=== PATIENT | female | born 1950 | race American Indian/Alaskan Native ===

== ENCOUNTER 2017-06-20 14:52 | Observation (INO) | payer MEDICARE | END 2017-06-20 21:22 | disposition home or self-care (01) | LOC: C.ER 14:52 → C.9OBSV 15:30 | PROVIDERS: ADMIT Emergency Medicine | CPT/HCPCS: 70450; 71010; 71275; 80048; 84436; 84480; 84484; 85025; 85378; Q9967 ==

== ENCOUNTER 2018-01-09 06:20 | Day surgery (SDC) | payer MEDICARE ==
[2018-01-09 07:18] VITALS: BMI 33.0
--- NOTE | 2018-01-09 08:28 | CP.SDSHP ---
Same Day Surgery H & P - History Proposed Procedure: colonoscopy Pre-Op Diagnosis: rectal bleeding. h/o colon polyps (>10 years ago) - Previous Medical/Surgical History Cardiac: Hypertension Endocrine/Metabolic: Obesity Misc: Other (RA, SLE, colon polyps) Previous Surgical History: appendix. T and A - Allergies Allergies: Allergies aspirin Adverse Reaction (Mild, Verified 01/09/18 07:16) NAUSEA - Physical Exam General Appearance: Morbidly obese Vital Signs: Vital Signs 01/09/18 07:27 Temperature 98.7 F Pulse Rate 68 Respiratory 19 Rate Blood Pressure 149/64 O2 Sat by Pulse 99 Oximetry Mental Status: Alert & Oriented x3 Neuro: WNL Heart: WNL Lungs: WNL GI: WNL - Impression Impression: rectal bleeding. h/o colon polyps (>10 years) Pt. Evaluated Today:Candidate for Anesthesia & Procedure: Yes - Date & Time Date: 01/09/18 Time: 08:28 Short Stay Discharge - Short Stay Discharge Admitting Diagnosis/Reason for Visit: GASTROINTESTINAL HEMORRHAGE,HISTORY OF COLONIC PAWEL Disposition: HOME/ ROUTINE
[2018-01-09] MEDS ORDERED: Propofol 10 mg/ml Inj (20 ML) ONE ×2 (08:42→08:53)
[2018-01-09] MEDS ORDERED: Lactated Ringer's 1,000 ML IV ONE (08:45)
[2018-01-09 09:22] VITALS: O2SAT 100
[2018-01-09 10:00] VITALS: PULSE 61
[2018-01-09 10:09] VITALS: BP 128/65; RESP 14; TEMP 98.2
== END 2018-01-09 10:05 | disposition home or self-care (01) ==
LOC: C.ENDO 06:20
PROVIDERS: ATTEND Internal Medicine Gastroenterology
DX: Z12.11 Encounter for screening for malignant neoplasm of colon (principal); D12.4 Benign neoplasm of descending colon; K57.30 Diverticulosis of large intestine without perforation or abscess without bleeding; K64.8 Other hemorrhoids; Z86.010 Personal history of colon polyps
CPT/HCPCS: 45380; 88305; J2704; J7120

== ENCOUNTER 2018-11-20 05:59 | Day surgery (SDC) | payer MEDICARE ==
[2018-11-20 06:48] VITALS: O2SAT 100
--- NOTE | 2018-11-20 07:55 | CP.SDSHP ---
Same Day Surgery H & P - History Proposed Procedure: colonoscopy Pre-Op Diagnosis: LGI bleeding - Previous Medical/Surgical History Cardiac: Hypertension Pulmonary: Emphysema/COPD, Other (EMIR) Endocrine/Metabolic: Obesity Misc: Other (RA, SLE, Diverticulosis, colon polyps) Previous Surgical History: appendix - Allergies Allergies: Allergies aspirin Adverse Reaction (Mild, Verified 01/09/18 07:16) NAUSEA - Physical Exam Vital Signs: Vital Signs 11/20/18 06:44 Temperature 98.6 F Pulse Rate 77 Respiratory 19 Rate Blood Pressure 151/68 H O2 Sat by Pulse 100 Oximetry Mental Status: Alert & Oriented x3 Neuro: WNL Heart: WNL Lungs: WNL GI: WNL - Impression Impression: LGI bleeding. Diverticulosis Pt. Evaluated Today:Candidate for Anesthesia & Procedure: Yes - Date & Time Date: 11/20/18 Time: 07:55 Short Stay Discharge - Short Stay Discharge Admitting Diagnosis/Reason for Visit: H/O COLON POLYP Disposition: HOME/ ROUTINE Referrals: Harley Arambula MD [Primary Care Provider] -
[2018-11-20] MEDS ORDERED: Propofol 10 mg/ml Inj (20 ML) ONE ×2 (08:02→08:14)
[2018-11-20] MEDS ORDERED: Midazolam 2 MG/2 ML VIAL ONE (08:02)
[2018-11-20 08:25] VITALS: TEMP 98
[2018-11-20 09:27] VITALS: BP 128/58; PULSE 71; RESP 18
== END 2018-11-20 09:25 | disposition home or self-care (01) ==
LOC: C.ENDO 05:59
PROVIDERS: ATTEND Internal Medicine Gastroenterology
DX: R10.32 Left lower quadrant pain (principal); K92.1 Melena; K57.30 Diverticulosis of large intestine without perforation or abscess without bleeding; Z86.010 Personal history of colon polyps; D12.5 Benign neoplasm of sigmoid colon; K64.8 Other hemorrhoids
CPT/HCPCS: 45380; 88305; J2250; J2704

== ENCOUNTER 2018-12-19 09:51 | Outpatient (CLI) | payer MEDICARE | END 2018-12-19 09:52 | disposition home or self-care (01) | LOC: C.USIC 09:52 ==

== ENCOUNTER 2019-01-10 06:52 | Day surgery (SDC) | payer MEDICARE ==
[2018-12-31 10:57] VITALS: BMI 33.5
[2019-01-10] MEDS ORDERED: Propofol 10 mg/ml Inj (20 ML) ONE (10:51)
[2019-01-10] MEDS ORDERED: Midazolam 2 MG/2 ML VIAL ONE (10:51)
[2019-01-10] MEDS ORDERED: HYDROmorphone 0.5 mg/0.5 ml ISec IVP PRN (11:35)
[2019-01-10 12:49] VITALS: TEMP 97.5
[2019-01-10 13:03] VITALS: RESP 18; O2SAT 100
[2019-01-10 13:54] VITALS: BP 149/72; PULSE 67
--- NOTE | 2019-01-10 23:47 | OP ---
PROCEDURE DATE: 01/10/2019 SURGEON: Arlene Arambula MD ACCIDENT EXAMINER: None. TYPE OF ANESTHESIA: General LMA. PREOPERATIVE DIAGNOSES: Postmenopausal bleeding, thickened endometrial stripe, abnormal ultrasound. POSTOPERATIVE DIAGNOSES: Postmenopausal bleeding, thickened endometrial stripe, abnormal ultrasound, endometrial polyp, submucosal myoma. PROCEDURES PERFORMED: Hysteroscopic myomectomy, endometrial polypectomy, dilation and curettage. OPERATIVE FINDINGS: Enlarged, 10-week sized, anteverted uterus. Bilateral ostia visualized. Polypoid tissue noted close to right ostium submucosal mass noted within the cavity, less than 1 cm. With MyoSure device, carefully resected. Good hemostasis noted. ESTIMATED BLOOD LOSS: 10 mL. COMPLICATIONS: None. SPECIMENS: Endocervical curettings, endometrial curettings, submucosal myoma, endometrial polyp. DESCRIPTION OF PROCEDURE: The patient was taken to the operating room, where she was given general anesthesia. Once it was found to be adequate, she was positioned on the operating table in dorsal lithotomy position with legs supported using stirrups. The patient was then prepped and draped in the usual sterile fashion. A time-out was performed confirming correct patient and correct procedure. Bimanual exam was performed with the above-mentioned findings. A Ortiz retractor was placed in the anterior and posterior fornix of the vagina. The cervix was adequately visualized. A single-tooth tenaculum was placed in the anterior lip of the cervix. Endocervical curettings were obtained with a Lexxian curette and sent to [facility]ology on [facility]. The uterus was then sounded to 8 cm. The cervix was sequentially dilated to allow for introduction of the hysteroscope under direct visualization using normal saline as the distention media. There were masses noted. The MyoSure device was then inserted under direct visualization and carefully resected, fluid deficit of less than 350 mL. Following this, MyoSure device was removed. Gentle curettage was done. Hysteroscope was reintroduced. There was good hemostasis noted. All instruments were removed. There was good hemostasis at the tenaculum puncture site and operative site. At the end of the procedure, all needle, sponge and instrument counts were noted to be correct x2. The patient tolerated the procedure well and was transferred to the recovery room in stable condition. Arlene Arambula MD [facility] # [id number]
== END 2019-01-10 13:56 | disposition home or self-care (01) ==
LOC: C.SDS 06:52
PROVIDERS: ATTEND Obstetrics & Gynecology
DX: N95.0 Postmenopausal bleeding (principal); R93.89 Abnormal findings on diagnostic imaging of other specified body structures; N84.0 Polyp of corpus uteri; D25.0 Submucous leiomyoma of uterus
CPT/HCPCS: 58558; 88305; J1170; J2250; J2704; J3010